=== PATIENT | female | born 1955 | race Caucasian/White ===

== ENCOUNTER 2018-05-22 07:38 | Day surgery (SDC) | payer OTHER ==
[2018-05-20 10:05] VITALS: BMI 23.3
[2018-05-22] MEDS ORDERED: LIDOCAINE HCL/PF 2% SDV 5ML VIAL ONE (08:08)
[2018-05-22] MEDS ORDERED: PROPOFOL 20 ML ONE ×2 (08:09)
[2018-05-22 09:04] VITALS: TEMP 97.4
[2018-05-22 16:11] VITALS: BP 100/59; PULSE 63
--- NOTE | 2018-05-24 15:29 | PATH ---
Surgical Pathology Report Patient Name: BUTCH KAN [facility]. Rec. #: [id number] /Age/Gender: 1955 (Age: 63) / F Account: [id number] Location: [facility] Taken: 05/22/2018 Received: 05/22/2018 Reported: 05/24/2018 Physicians: Elton Perez M.D. Specimen(s) Received POLYP RIGHT COLON Clinical History History of polyps Postoperative diagnosis: Polyp Final Diagnosis RIGHT COLON, POLYP, BIOPSY: TUBULAR ADENOMA. Electronically Signed Norma Sutherland M.D. Gross Description Received in formalin, labeled "biopsy polyp right colon" is a brown, irregular portion of soft tissue measuring 0.5 cm. in greatest dimension. The specimen is submitted in toto in one cassette. /05/23/201805/23/2018
== END 2018-05-22 09:30 | disposition home or self-care (01) ==
LOC: FASU-ENDO 07:38
PROVIDERS: ATTEND Internal Medicine Gastroenterology
PROC: 0DBK8ZX Excision of Ascending Colon, Via Natural or Artificial Opening Endoscopic, Diagnostic (ICD-10-PCS; principal; 2018-05-22 08:27)
DX: Z86.010 Personal history of colon polyps (principal); D12.2 Benign neoplasm of ascending colon; Z80.0 Family history of malignant neoplasm of digestive organs; Z83.71 Family history of colonic polyps
CPT/HCPCS: 88305-TC

== ENCOUNTER 2022-05-22 10:07 | Day surgery (SDC) | payer OTHER ==
[2022-05-17 16:14] VITALS: BMI 22.9
[2022-05-22] MEDS ORDERED: PROPOFOL 20 ML ONE (11:48)
[2022-05-22 12:27] VITALS: RESP 16; TEMP 98
[2022-05-22 12:55] VITALS: BP 124/72; PULSE 75
== END 2022-05-22 13:22 | disposition home or self-care (01) ==
LOC: FASU-ENDO 10:07
PROVIDERS: ATTEND Internal Medicine Gastroenterology
PROC: 0DB98ZX Excision of Duodenum, Via Natural or Artificial Opening Endoscopic, Diagnostic (ICD-10-PCS; 2022-05-22)
PROC: 0DB78ZX Excision of Stomach, Pylorus, Via Natural or Artificial Opening Endoscopic, Diagnostic (ICD-10-PCS; 2022-05-22)
PROC: 0DB48ZX Excision of Esophagogastric Junction, Via Natural or Artificial Opening Endoscopic, Diagnostic (ICD-10-PCS; 2022-05-22)
PROC: 0DJD8ZZ Inspection of Lower Intestinal Tract, Via Natural or Artificial Opening Endoscopic (ICD-10-PCS; principal; 2022-05-22 12:00)
DX: Z12.11 Encounter for screening for malignant neoplasm of colon (principal); K29.50 Unspecified chronic gastritis without bleeding; K21.00 Gastro-esophageal reflux disease with esophagitis, without bleeding; Z86.010 Personal history of colon polyps; Z80.0 Family history of malignant neoplasm of digestive organs; Z83.71 Family history of colonic polyps
CPT/HCPCS: 43239; G0105; 88305-TC; 88342-TC